=== PATIENT | male | born 1985 | race Caucasian/White ===

== ENCOUNTER 2018-01-21 15:20 | Emergency (ER) | payer OTHER ==
[2018-01-21 15:28] VITALS: BP 136/74; PULSE 82; TEMP 98.4; BMI 31.4
--- NOTE | 2018-01-21 16:12 | PDOC ---
History of Present Illness - General History Source: Patient Exam Limitations: No Limitations - History of Present Illness Initial Comments: 01/21/18 17:08 The patient is a 32 year old male, with a significant past medical history of HTN, benzodiazepine abuse and Alprazolam use who presents to the emergency department with bilateral lower extremity cellulitis. Patient reports his legs have progressively worsened within the past 5 days. Patient endorses fever/ chills, and bilateral heel pain. Patient was admitted to [facility] however was sent to the ED for further evaluation. Patient denies chest pain, headache or dizziness. Patient denies abdominal pain, nausea, vomit, diarrhea or constipation. Patient denies dysuria, frequency, urgency or hematuria. Patient denies sick contacts or recent travel. Allergies: NKA Past surgical history: None Social history: Current everyday smoker (20 cigg/day). Methadone 220 mg/day. PCP: None <Abigail Still - Last Filed: 01/21/18 17:08> <Myriam Ojeda - Last Filed: 01/21/18 18:55> - General Chief Complaint: Substance Abuse Stated Complaint: SUBSTANCE ABUSE Time Seen by Provider: 01/21/18 15:34 Past History <Abigail Still - Last Filed: 01/21/18 17:08> - Suicide/Smoking/Psychosocial Hx Smoking History: Current every day smoker Number of Cigarettes Smoked Daily: 20 Information on smoking cessation initiated: No Hx Alcohol Use: Yes Drug/Substance Use Hx: Yes <Myriam Ojeda - Last Filed: 01/21/18 18:55> - Past Medical History Allergies/Adverse Reactions: Allergies Allergy/AdvReac Type Severity Reaction Status Date / Time No Known Allergies Allergy Verified 01/21/18 15:23 Home Medications: Ambulatory Orders Cephalexin [Keflex] 250 mg PO QID #28 capsule 01/21/18 Methadone 220 mg PO DAILY 01/21/18 Omeprazole 20 mg PO DAILY 01/21/18 Sulfamethoxazole/Trimethoprim [Bactrim Ds -] 1 tab PO BID #14 tablet 01/21/18 Review of Systems - Review of Systems Able to Perform ROS?: Yes Comments:: 01/21/18 17:09 GENERAL/CONSTITUTIONAL: +fever, chills. No: weakness, loss of appetite. HEAD, EYES, EARS, NOSE AND THROAT: No: change in vision, ear pain, discharge, sore throat, throat swelling. CARDIOVASCULAR: No: chest pain, lightheadedness, palpitations, syncope RESPIRATORY: No: cough, shortness of breath, wheezing, hemoptysis, stridor. GASTROINTESTINAL: No: nausea, vomiting, abdominal cramping, diarrhea, rectal bleeding, constipation. GENITOURINARY: No: dysuria, hematuria, frequency, urgency, flank pain. MUSCULOSKELETAL: No: back pain, neck pain, joint pain, muscle swelling or pain SKIN: No: lesions, pallor, rash or easy bruising. NEUROLOGIC: No: headache, vertigo, paresthesias, weakness ENDOCRINE: No: unexplained weight gain or loss HEMATOLOGIC/LYMPHATIC: No: anemia, easy bleeding, swelling nodes <Abigail Still - Last Filed: 01/21/18 17:08> *Physical Exam - Vital Signs Last Vital Signs Temp Pulse Resp BP Pulse Ox 98.4 F 82 18 136/74 99 01/21/18 15:23 01/21/18 15:23 01/21/18 15:23 01/21/18 15:23 01/21/18 15:23 - Physical Exam Comments: 01/21/18 17:09 GENERAL:+Arousable to verbal stimuli. The patient is in no acute distress. HEAD: Normal with no signs of trauma. EYES: PERRLA, EOMI, sclera anicteric, conjunctiva clear. ENT: Ears normal, nares patent, oropharynx clear without exudates. Moist mucous membranes. NECK: Normal range of motion, supple without lymphadenopathy, JVD, or masses. LUNGS: Breath sounds equal, clear to auscultation bilaterally. No wheezes, and no crackles. HEART:Regular rate and rhythm, normal S1 and S2 without murmur, rub or gallop. ABDOMEN: Soft, nontender, normoactive bowel sounds. No guarding, no rebound. EXTREMITIES: Normal range of motion, no edema. No clubbing or cyanosis. + Bilateral lower extremity erythema. NEUROLOGICAL: Cranial nerves II through XII grossly intact. Normal speech. No focal neurological deficits. MUSCULOSKELETAL: Back nontender to palpation, no CVA tenderness SKIN: Warm, Dry, normal turgor, no rashes or lesions noted. <Abigail Still - Last Filed: 01/21/18 17:08> - Vital Signs Last Vital Signs Temp Pulse Resp BP Pulse Ox 98.4 F 82 18 136/74 99 01/21/18 15:23 01/21/18 15:23 01/21/18 15:23 01/21/18 15:23 01/21/18 15:23 <Myriam Ojeda - Last Filed: 01/21/18 18:55> ED Treatment Course - LABORATORY CBC & Chemistry Diagram: 01/21/18 17:58 01/21/18 17:58 <Myriam Ojeda - Last Filed: 01/21/18 18:55> Medical Decision Making - Medical Decision Making 01/21/18 18:47 Mr. Askew is a 32-year-old male with a history of polysubstance abuse, recent discharge from [facility] where he was admitted for detox, and kicked out due to fighting. He presents emergency department from [facility] due to lower extremity edema. Patient states he's had lower external edema for several days. No fevers, chills. He's noticed lower extremity erythema. Patient states his legs are painful. No trauma. No bruising. Physical diagnoses: Dependent Edema, DVT, cellulitis Will do: Labs, x-ray, duplex Laboratory Tests 01/21/18 01/21/18 17:58 17:58 WBC 8.6 Hgb 12.3 Hct 35.5 Plt Count 269 Sodium 137 Potassium 3.8 Chloride 102 Carbon Dioxide 26 BUN 14 Creatinine 0.9 Random Glucose 76 01/21/18 18:51 Duplex: No DVT X-ray: Lower extremity edema Will: Discharge to [facility] (no fever, no leukocytosis) Pt to be started on antibiotics Pt to elevate legs to decrease edema Clinical Impression: Cellulitis, initial presentation <Myriam Ojeda - Last Filed: 01/21/18 18:55> *DC/Admit/Observation/Transfer - Attestations Scribe Attestion: 01/21/18 17:09 Documentation prepared by Abigail Still, acting as electromedical service engineer for Myriam Ojeda MD <Abigail Still - Last Filed: 01/21/18 17:08> - Discharge Dispostion Admit: No <Myriam Ojeda - Last Filed: 01/21/18 18:55> Diagnosis at time of Disposition: Cellulitis of leg without foot, left, Cellulitis of leg without foot, right - Discharge Dispostion Disposition: HOME Condition at time of disposition: Stable - Patient Instructions Printed Discharge Instructions: DI for Cellulitis -- Adult Additional Instructions: Mr Askew Thank you for coming into the emergency Department today. Please be sure to take antibiotics as prescribed. You will be on Keflex as well as Bactrim. You absolutely must focus on elevating her legs when you're not walking, this will help decrease her swelling. Please monitor herself for fevers. If he noticed fevers or chills, you must come to the emergency department for reevaluation.
[2018-01-21 18:10] LABS: BASO % 0.7 % (0-2.0); EOS % 2.5 % (0-4.5); HEMATOCRIT 35.5 % (35.4-49); HEMOGLOBIN 12.3 GM/dL (11.7-16.9); LYMPH % 34.7 % (8-40); MCH 31.8 pg (25.7-33.7); MCHC 34.7 g/dl (32.0-35.9); MEAN CELL VOLUME 91.7 fl (80-96); MEAN PLT VOLUME 7.6 fl (7.5-11.1); MONO % 10.1 % (3.8-10.2); PLATELET COUNT 269 K/MM3 (134-434); RBC 3.87 M/mm3 (4.00-5.60); WHITE BLOOD COUNT 8.6 K/mm3 (4.0-10.0)
[2018-01-21 18:42] LABS: ALBUMIN 3.6 g/dl (3.4-5.0); ANION GAP 9 (8-16); BLOOD UREA NITROGEN 14 mg/dL (7-18); CALCIUM 8.2 mg/dL (8.5-10.1); CHLORIDE 102 mmol/L (98-107); CO2 26 mmol/L (21-32); CREATININE 0.9 mg/dL (0.7-1.3); GLUCOSE,RANDOM 76 mg/dL (74-106); POTASSIUM 3.8 mmol/L (3.5-5.1); SGOT/AST 99 U/L (15-37); SGPT/ALT 88 U/L (12-78); SODIUM 137 mmol/L (136-145)
[2018-01-21 18:44] LABS: ALK PHOS 104 U/L (45-117); BILIRUBIN,TOTAL 0.8 mg/dL (0.2-1.0); TOT PROT 7.3 g/dl (6.4-8.2)
[2018-01-21] MEDS ORDERED: IBUPROFEN 600 MG TABLET (FP) PO ONE ×2 (19:34→19:35)
--- NOTE | 2018-01-21 21:37 | HP ---
CIWA Score - CIWA Score Nausea/Vomitin Muscle Tremors: 4-Moderate,w/Arms Extend Anxiety: 4-Mod. Anxious/Guarded Agitation: 1-Slight > Activity Paroxysmal Sweats: 2 Orientation: 0-Oriented Tacttile Disturbances: 0-None Auditory Disturbances: 1-Very Mild Visual Disturbances: 1-Very Mild Sensitivity Headache: 1-Very Mild CIWA-Ar Total Score: 16 Admission ROS S - HPI Chief Complaint: I am trying to stay of the benzo, I dont feel well and I'm going through it. Allergies/Adverse Reactions: Allergies Allergy/AdvReac Type Severity Reaction Status Date / Time No Known Allergies Allergy Verified 01/21/18 15:23 History of Present Illness: Patient is 32 yo male klonopin, xanax and nicotine dependence is here seeking detox. Patient was send from [facility] after he was evaluation for bilateral cellulitis of both lower extremities. Patient currently on outpatient MMTP at [facility] [phone], on Methadone 220 mg QD, last medicated . PMHX: s/p fall 2 weeks ago with hairline fracture on left shoulder blade, asthma, IBS, Eczema, HTN, Hiatial hernia, anxiety, depression, PTSD, bipolar, schizophrenia. Denies suicidal / homicidal ideation or suicide attempts. Denies any legal problems. Longest period of sobriety on year. Reports hx of 12 rehab and detox treatment in his past. Reports attempted detox at [facility] about three days ago and signed out AMA. Reports recent overdose three days. Denies hx of seizure, reports recent overdose in the past three days after 16mg of klonopin. Exam Limitations: No Limitations - Ebola screening Have you traveled outside of the country in the last 21 days: No Have you had contact with anyone from an Ebola affected area: No Have you been sick,other than usual withdrawal symptoms: No Do you have a fever: No - Review of Systems Constitutional: Chills, Loss of Appetite, Changes in sleep, Unintentional Wgt. Loss (20 lbs over the past month) EENT: reports: Blurred Vision (wears glassess), Dental Problems (missing teeth) Respiratory: reports: No Symptoms reported Cardiac: reports: No Symptoms Reported GI: reports: Diarrhea, Poor Appetite, Poor Fluid Intake, Abdominal cramping : reports: No Symptoms Reported Musculoskeletal: reports: Back Pain, Joint Pain Integumentary: reports: Erythema (both lower extremites) Neuro: reports: Headache, Tremors Endocrine: reports: Excessive Sweating, Increased Thirst Hematology: reports: No Symptoms Reported Psychiatric: reports: Orientated x3, Anxious, Depressed Other Systems: Reviewed and Negative Patient History - Patient Medical History Hx Anemia: No Hx Asthma: Yes Hx Chronic Obstructive Pulmonary Disease (COPD): No Hx Cancer: No Hx Cardiac Disorders: No Hx Congestive Heart Failure: No Hx Hypertension: Yes Hx Hypercholesterolemia: No Hx Pacemaker: No HX Cerebrovascular Accident: No Hx Seizures: No Hx Dementia: No Hx Diabetes: No Hx Gastrointestinal Disorders: Yes (IBS , GERD, Hiatial Hernia ) Hx Liver Disease: Yes (Hep C not treatment ) Hx Genitourinary Disorders: No Hx Sexually Transmitted Disorders: Yes (Chlamydia ) Hx Renal Disease (ESRD): Yes (kidney stones ) Hx Thyroid Disease: No Hx Human Immunodeficiency Virus (HIV): Yes (tested in July 2017) Hx Hepatitis C: No Hx Depression: Yes Hx Suicide Attempt: No Hx Bipolar Disorder: Yes Hx Schizophrenia: Yes - Patient Surgical History Past Surgical History: Yes Hx Neurologic Surgery: No Hx Cataract Extraction: No Hx Cardiac Surgery: No Hx Lung Surgery: No Hx Breast Surgery: No Hx Breast Biopsy: No Hx Abdominal Surgery: No Hx Appendectomy: No Hx Cholecystectomy: No Hx Genitourinary Surgery: No Hx Orthopedic Surgery: No Other Surgical History: deviated septum repair, 2001 Anesthesia Reaction: No - PPD History Previous Implant?: No Documented Results: Negative w/o proof PPD to be Administered?: Yes - Reproductive History Patient is a Female of Child Bearing Age (11 -55 yrs old): No - Smoking Cessation Smoking history: Current every day smoker Aproximately how many cigarettes per day: 20 Cigars Per Day: 0 Hx Chewing Tobacco Use: No Initiated information on smoking cessation: No 'Breaking Loose' booklet given: 01/21/18 - Substance & Tx. History Hx Alcohol Use: No Hx Substance Use: Yes - Substances Abused Alprazolam (Xanax) Route: Oral Frequency: Daily Amount used: unknown Date of Last Use: 01/19/18 Benzodiazepine (Klonopin) Route: Oral Frequency: Daily Amount used: unknown Date of Last Use: 01/19/18 Alcohol Route: Oral Frequency: 3-6 times per week Amount used: 2 pints vodka Age of first use: 15 Date of Last Use: 01/16/18 Family Disease History - Family Disease History Family Disease History: CA: Father (alive, proatate cancer ), Mother (, breast cancer ), Other: Father, Mother Admission Physical Exam S - Vital Signs Vital Signs: Vital Signs - 24 hr 01/21/18 15:23 Temperature 98.4 F Pulse Rate 82 Respiratory 18 Rate Blood Pressure 136/74 O2 Sat by Pulse 99 Oximetry (%) - Physical General Appearance: Yes: Disheveled, Mild Distress, Thin, Tremorous, Irritable, Sweating, Anxious HEENTM: Yes: EOMI, Hearing grossly Normal, Normal ENT Inspection, Normocephalic , Normal Voice, STUART, Pharynx Normal, Tm's normal, Other (poor dentation, dry mucous membranes) Respiratory: Yes: Chest Non-Tender, No Respiratory Distress, No Accessory Muscle Use, Wheezing Neck: Yes: No masses,lesions,Nodules, Trachea in good position Breast: Yes: Breast Exam Deferred Cardiology: Yes: Regular Rhythm, Regular Rate Abdominal: Yes: Normal Bowel Sounds, Non Tender, Soft, Protuberent Genitourinary: Yes: Within Normal Limits Back: Yes: Normal Inspection Musculoskeletal: Yes: full range of Motion, Gait Steady, Pelvis Stable, Back pain, Other (left arm in sling) Extremities: Yes: Normal Capillary Refill, Normal Inspection, Normal Range of Motion, Non-Tender Neurological: Yes: shoes hand sewer II-XII NML intact, Fully Oriented, Alert, Motor Strength 5/5, Depressed Affect, Other (vey anxious with rapid speech) Integumentary: Yes: Normal Color, Erythema, Diaphoresis, Pitting Edema ( bilateral lower extremities) Lymphatic: Yes: Within Normal Limits - Diagnostic (1) Methadone maintenance therapy patient Status: Chronic Comment: Currently 220mg methadone pending verification (2) Hypertension Status: Acute Qualifiers: Hypertension type: essential hypertension Qualified Code(s): I10 - Essential (primary) hypertension (3) Hepatitis C Status: Chronic Qualifiers: Viral hepatitis chronicity: unspecified (4) Nicotine dependence Status: Chronic Qualifiers: Nicotine product type: cigarettes (5) Sedative, hypnotic or anxiolytic dependence with withdrawal, unspecified Status: Acute (6) Alcohol dependence with withdrawal Status: Acute (7) Eczema Status: Chronic Qualifiers: Eczema type: unspecified Qualified Code(s): L30.9 - Dermatitis, unspecified (8) Asthma Status: Chronic Qualifiers: Asthma severity: moderate Asthma persistence: unspecified Asthma complication type: uncomplicated Qualified Code(s): J45.909 - Unspecified asthma, uncomplicated (9) Wheezing Status: Acute (10) IBS (irritable bowel syndrome) Status: Chronic Qualifiers: Irritable bowel syndrome type: unspecified Qualified Code(s): K58.9 - Irritable bowel syndrome without diarrhea (11) Hernia, hiatal Status: Chronic (12) History of fall within past 90 days Status: Acute (13) Cellulitis of leg without foot, left Status: Acute (14) Cellulitis of leg without foot, right Status: Acute (15) Psychiatric disorder Status: Suspected Cleared for Admission [facility] - Detox or Rehab S Level of Care: Medically Managed Detox Regimen/Protocol: Valium [facility] Breath Alcohol Content Breath Alcohol Content: 0
[2018-01-21] MEDS ORDERED: IBUPROFEN 400 MG TABLET (FP) PO PRN (21:57)
[2018-01-21] MEDS ORDERED: guaiFENesin/D-METHORPHAN HB 10 ML UNIT-DOSE CUPS PO PRN (21:57)
[2018-01-21] MEDS ORDERED: P-EPHED 60MG/TRIPROLIDI 2.5MG TABLET PO PRN (21:57)
[2018-01-21] MEDS ORDERED: MAGNESIUM CITRATE 300 ML BOTTLE PO PRN (21:57)
[2018-01-21] MEDS ORDERED: hydrOXYzine PAMOATE 50 MG CAPSULE (FP) PO PRN (21:57)
[2018-01-21] MEDS ORDERED: MAGNESIUM HYDROX 2400MG/30ML ORAL SUSPENSION 30 ML CUP PO PRN (21:57)
[2018-01-21] MEDS ORDERED: MENTHOL/PHENOL 1 EACH UD MM PRN (21:57)
[2018-01-21] MEDS ORDERED: ACETAMINOPHEN 325 MG TABLET (FP) PO PRN (21:57)
[2018-01-21] MEDS ORDERED: LOPERAMIDE HCL 2 MG CAPSULE PO PRN (21:57)
[2018-01-21] MEDS ORDERED: MAG HYDROX/AL HYDROX/SIMETH 30 ML UNIT-DOSE CUP PO PRN (21:57)
[2018-01-21] MEDS ORDERED: NICOTINE POLACRILEX 2 MG GUM BC PRN (21:57)
[2018-01-21] MEDS ORDERED: diazePAM 5 MG TABLET PO PRN (21:57)
[2018-01-21] MEDS ORDERED: diazePAM 5 MG TABLET PO ONE (21:57)
[2018-01-21] MEDS ORDERED: diazePAM 5 MG TABLET PO SCH (22:00)
[2018-01-21] MEDS ORDERED: THIAMINE HCL 100 MG TABLET (FP) PO SCH (22:00)
[2018-01-21] MEDS ORDERED: cloNIDine HCL 0.1 MG TABLET PO SCH (22:30)
[2018-01-21] MEDS ORDERED: TUBERCULIN PPD 5 TU/0.1ML SYRINGE (IN PATIENT USE ONLY) ID ONE (22:45)
[2018-01-22] MEDS ORDERED: VITAMINS A AND D TOPICAL OINTMENT 60 GM TUBE TP SCH
[2018-01-22] MEDS ORDERED: ALBUTEROL SO4 2.5/IPRATROPIUM 0.5 INH SOL 3 ML VIAL.NEB. NEB SCH (08:00)
[2018-01-22] MEDS ORDERED: PANTOPRAZOLE 20 MG TABLET (FP) PO SCH (10:00)
[2018-01-22] MEDS ORDERED: NICOTINE 21 MG/24 HOURS TOPICAL PATCH TD SCH (10:00)
[2018-01-22] MEDS ORDERED: PRENATAL VITAMINS W/ FOLIC ACID TABLET (FP) PO SCH (10:00)
[2018-01-22] MEDS ORDERED: IBUPROFEN 400 MG TABLET (FP) PO PRN (10:00)
[2018-01-23] MEDS ORDERED: diazePAM 5 MG TABLET PO SCH (10:00)
[2018-01-25] MEDS ORDERED: diazePAM 5 MG TABLET PO SCH (10:00)
== END 2018-01-21 20:00 | disposition home or self-care (01) ==
LOC: JER 15:20
DX: L03.116 Cellulitis of left lower limb (principal); L03.115 Cellulitis of right lower limb; F13.10 Sedative, hypnotic or anxiolytic abuse, uncomplicated; F17.210 Nicotine dependence, cigarettes, uncomplicated; I10 Essential (primary) hypertension
CPT/HCPCS: 36415; 71045-TC-FY; 73590-TC-LT-FY; 73590-TC-RT-FY; 80053; 85025; 87040; 93970-TC; 99283-25

== ENCOUNTER 2018-05-19 11:13 | Inpatient (IN) | payer OTHER ==
[2018-05-19 12:05] VITALS: BMI 26.4
--- NOTE | 2018-05-19 12:34 | HP ---
CIWA Score - CIWA Score Nausea/Vomitin-Mild Nausea/No Vomiting Muscle Tremors: 4-Moderate,w/Arms Extend Anxiety: 4-Mod. Anxious/Guarded Agitation: 4-Moderately Restless Paroxysmal Sweats: 1-Minimal Palms Moist Orientation: 0-Oriented Tacttile Disturbances: 0-None Auditory Disturbances: 0-None Visual Disturbances: 0-None Headache: 1-Very Mild CIWA-Ar Total Score: 15 Admission ROS S - HPI Chief Complaint: benzo withdrawal sx Allergies/Adverse Reactions: Allergies Allergy/AdvReac Type Severity Reaction Status Date / Time No Known Allergies Allergy Verified 05/19/18 12:11 History of Present Illness: 33 years old male with long history of prescription benzo for anxiety step into benzo dependence, patient came to [facility] for benzo detox with [facility] written by Mylene Allison NP [phone] that the patient wants to stop benzo consumption Exam Limitations: No Limitations - Ebola screening Have you traveled outside of the country in the last 21 days: No Have you had contact with anyone from an Ebola affected area: No Have you been sick,other than usual withdrawal symptoms: No Do you have a fever: No - Review of Systems Constitutional: Changes in sleep, Weight Stable EENT: reports: No Symptoms Reported Respiratory: reports: No Symptoms reported Cardiac: reports: No Symptoms Reported GI: reports: Nausea, Poor Fluid Intake, Abdominal cramping : reports: No Symptoms Reported Musculoskeletal: reports: No Symptoms Reported Integumentary: reports: Erythema (face dry shave this morning) Neuro: reports: Tremors Endocrine: reports: No Symptoms Reported Hematology: reports: No Symptoms Reported Psychiatric: reports: Judgement Intact, Orientated x3, Anxious, Depressed Other Systems: Reviewed and Negative Patient History - Patient Medical History Hx Anemia: No Hx Asthma: Yes (as child) Hx Chronic Obstructive Pulmonary Disease (COPD): No Hx Cancer: No Hx Cardiac Disorders: No Hx Congestive Heart Failure: No Hx Hypertension: No Hx Hypercholesterolemia: No Hx Pacemaker: No HX Cerebrovascular Accident: No Hx Seizures: No Hx Dementia: No Hx Diabetes: No Hx Gastrointestinal Disorders: Yes (IBS , GERD, Hiatial Hernia ) Hx Liver Disease: Yes (Hep C not treatment ) Hx Genitourinary Disorders: No Hx Sexually Transmitted Disorders: Yes (Chlamydia ) Hx Renal Disease (ESRD): Yes (kidney stones 2008) Hx Thyroid Disease: No Hx Human Immunodeficiency Virus (HIV): No (tested in July 2017) Hx Hepatitis C: No Hx Depression: Yes Hx Suicide Attempt: No Hx Bipolar Disorder: No Hx Schizophrenia: No - Patient Surgical History Past Surgical History: Yes Hx Neurologic Surgery: No Hx Cataract Extraction: No Hx Cardiac Surgery: No Hx Lung Surgery: No Hx Breast Surgery: No Hx Breast Biopsy: No Hx Abdominal Surgery: No Hx Appendectomy: No Hx Cholecystectomy: No Hx Genitourinary Surgery: No Hx Orthopedic Surgery: No Other Surgical History: deviated septum repair, 2001 Anesthesia Reaction: No - PPD History Previous Implant?: Yes Documented Results: Negative w/proof Implanted On Prior [facility] Admission?: Yes Date: 01/23/18 PPD to be Administered?: No - Smoking Cessation Smoking history: Current every day smoker Have you smoked in the past 12 months: Yes Aproximately how many cigarettes per day: 20 Cigars Per Day: 0 Hx Chewing Tobacco Use: No Initiated information on smoking cessation: Yes 'Breaking Loose' booklet given: 05/19/18 - Substance & Tx. History Hx Alcohol Use: No Hx Substance Use: Yes Substance Use Type: Marijuana, Tranquilizers Hx Substance Use Treatment: Yes (01/2018 [facility] Family Disease History - Family Disease History Family Disease History: CA: Father (alive, proatate cancer ), Mother (, breast cancer ), Other: Father, Mother Admission Physical Exam S - Vital Signs Vital Signs: Vital Signs - 24 hr 05/19/18 12:01 Temperature 97.5 F L Pulse Rate 70 Respiratory 20 Rate Blood Pressure 137/84 - Physical General Appearance: Yes: Appropriately Dressed, Mild Distress, Tremorous, Irritable, Sweating, Anxious HEENTM: Yes: Hearing grossly Normal, Normocephalic, Normal Voice Respiratory: Yes: Chest Non-Tender, Lungs Clear, Normal Breath Sounds, No Respiratory Distress, No Accessory Muscle Use Neck: Yes: Supple, Trachea in good position Breast: Yes: Breasts Symetrical, No Discharge Cardiology: Yes: Regular Rhythm, Regular Rate, S1, S2 Abdominal: Yes: Normal Bowel Sounds, Flat, Soft, Other (ibs frequent diarrhea) Genitourinary: Yes: Within Normal Limits Back: Yes: Normal Inspection Musculoskeletal: Yes: full range of Motion, Gait Steady Extremities: Yes: Normal Inspection, Normal Range of Motion, Non-Tender, Tremors Neurological: Yes: Fully Oriented, Alert, Motor Strength 5/5, Normal Response, Depressed Affect Integumentary: Yes: Warm Lymphatic: Yes: Within Normal Limits - Diagnostic (1) Anxiety with depression Current Visit: Yes Status: Suspected (2) Sedative, hypnotic or anxiolytic dependence with withdrawal, unspecified Current Visit: Yes Status: Acute Comment: . (3) Hepatitis C Current Visit: Yes Status: Chronic Qualifiers: Viral hepatitis chronicity: chronic Hepatic coma status: without hepatic coma Qualified Code(s): B18.2 - Chronic viral hepatitis C (4) IBS (irritable bowel syndrome) Current Visit: Yes Status: Chronic Qualifiers: Irritable bowel syndrome type: with diarrhea Qualified Code(s): K58.0 - Irritable bowel syndrome with diarrhea (5) Methadone maintenance therapy patient Current Visit: Yes Status: Chronic Comment: Currently 250mg methadone pending verification (6) Nicotine dependence Current Visit: Yes Status: Acute Qualifiers: Nicotine product type: cigarettes Substance use status: in withdrawal Qualified Code(s): F17.213 - Nicotine dependence, cigarettes, with withdrawal Comment: . (7) UTI (urinary tract infection) Current Visit: Yes Status: Acute Qualifiers: Urinary tract infection type: site unspecified Hematuria presence: without hematuria Qualified Code(s): N39.0 - Urinary tract infection, site not specified Cleared for Admission [facility] - Detox or Rehab [facility] Level of Care: Medically Managed Detox Regimen/Protocol: Valium [facility] Breath Alcohol Content Breath Alcohol Content: 0 Urine Drug Screen - Results Drug Screen Negative: No Urine Drug Screen Results: THC-Marijuana, BZO-Benzodiazepines, MTD-Methadone, TCA-Tricyclic Antidepress
[2018-05-19] MEDS ORDERED: ACETAMINOPHEN 325 MG TABLET (FP) PO PRN (12:40)
[2018-05-19] MEDS ORDERED: MAGNESIUM HYDROX 2400MG/30ML ORAL SUSPENSION 30 ML CUP PO PRN (12:40)
[2018-05-19] MEDS ORDERED: MENTHOL/PHENOL 1 EACH UD MM PRN (12:40)
[2018-05-19] MEDS ORDERED: guaiFENesin/D-METHORPHAN HB 10 ML UNIT-DOSE CUPS PO PRN (12:40)
[2018-05-19] MEDS ORDERED: P-EPHED 60MG/TRIPROLIDI 2.5MG TABLET PO PRN (12:40)
[2018-05-19] MEDS ORDERED: MAGNESIUM CITRATE 300 ML BOTTLE PO PRN (12:40)
[2018-05-19] MEDS ORDERED: NICOTINE POLACRILEX 4 MG GUM BUC PRN (12:40)
[2018-05-19] MEDS ORDERED: diazePAM 5 MG TABLET PO ONE (14:30)
[2018-05-19] MEDS: NICOTINE 21 MG/24 HOURS TOPICAL PATCH TD SCH (15:28)
[2018-05-19] MEDS: RANITIDINE HCL 150 MG TABLET (FP) PO SCH ×2 (15:29→22:12)
[2018-05-19] MEDS ORDERED: METHADONE HCL 5 MG TABLET ONE (17:03)
[2018-05-19] MEDS ORDERED: METHADONE HCL 40 MG DISPERSABLE TABLET ONE (17:03)
[2018-05-19 17:19] LABS: URINE APPEARANCE CLEAR; URINE BILIRUBIN NEGATIVE (<2.0 mg/dL); URINE COLOR AMBER; URINE GLUCOSE (UA) NEGATIVE (NEGATIVE); URINE KETONE NEGATIVE (NEGATIVE); URINE LEUK ESTERASE TRACE (NEGATIVE); URINE NITRITE POSITIVE (NEGATIVE); URINE PROTEIN NEGATIVE (NEGATIVE); URINE UROBILINOGEN 4.0 E.U/dl mg/dL (0.2-1.0)
[2018-05-19] MEDS: LOPERAMIDE HCL 2 MG CAPSULE PO PRN ×2 (17:30→23:33)
[2018-05-19] MEDS ORDERED: METHADONE HCL 10 MG TABLET PO ONE (18:00)
[2018-05-19] MEDS ORDERED: METHADONE 120 MG, METHADONE 5 MG PO ONE (18:00)
[2018-05-19 18:42] LABS: URINE MUCUS RARE
[2018-05-19] MEDS: diazePAM 5 MG TABLET PO PRN ×2 (19:06→23:33)
[2018-05-19] MEDS: MINERAL OIL/PETROLAT/WATER TOPICAL CREAM 113 GM JAR TP SCH (22:12)
[2018-05-19] MEDS: THIAMINE HCL 100 MG TABLET (FP) PO SCH (22:12)
[2018-05-19] MEDS: diazePAM 5 MG TABLET PO SCH (22:12)
[2018-05-19] MEDS: MELATONIN 5 MG TABLETS PO PRN (22:13)
[2018-05-20] MEDS: diazePAM 5 MG TABLET PO PRN ×3 (03:48→18:48)
[2018-05-20] MEDS ORDERED: METHADONE HCL 5 MG TABLET ONE ×2 (04:25→17:00)
[2018-05-20] MEDS ORDERED: METHADONE HCL 40 MG DISPERSABLE TABLET ONE ×2 (04:26→17:01)
[2018-05-20] MEDS: diazePAM 5 MG TABLET PO SCH ×3 (05:42→22:15)
[2018-05-20] MEDS: METHADONE 120 MG, METHADONE 5 MG PO SCH ×2 (05:42→17:46)
[2018-05-20] MEDS ORDERED: METHADONE HCL 10 MG TABLET PO SCH (06:00)
[2018-05-20] MEDS: IBUPROFEN 400 MG TABLET (FP) PO PRN ×2 (07:56→14:16)
[2018-05-20 09:29] LABS: HEMATOCRIT 39.2 % (35.4-49); HEMOGLOBIN 13.5 GM/dL (11.7-16.9); MCH 30.8 pg (25.7-33.7); MCHC 34.4 g/dl (32.0-35.9); MEAN CELL VOLUME 89.5 fl (80-96); MEAN PLT VOLUME 9.3 fl (7.5-11.1); PLATELET COUNT 187 K/MM3 (134-434); RBC 4.38 M/mm3 (4.00-5.60); RDW 13.7 % (11.9-15.9); WHITE BLOOD COUNT 8.7 K/mm3 (4.0-10.0)
[2018-05-20 10:08] LABS: ALBUMIN 4.3 g/dl (3.4-5.0); ANION GAP 7 (8-16); BLOOD UREA NITROGEN 8 mg/dL (7-18); CALCIUM 8.8 mg/dL (8.5-10.1); CHLORIDE 103 mmol/L (98-107); CO2 26 mmol/L (21-32); CREATININE 1.1 mg/dL (0.7-1.3); GLUCOSE,RANDOM 82 mg/dL (74-106); POTASSIUM 4.3 mmol/L (3.5-5.1); SGOT/AST 46 U/L (15-37); SGPT/ALT 64 U/L (12-78); SODIUM 136 mmol/L (136-145)
[2018-05-20 10:09] LABS: ALK PHOS 85 U/L (45-117); BILIRUBIN,TOTAL 0.4 mg/dL (0.2-1.0); TOT PROT 7.9 g/dl (6.4-8.2)
[2018-05-20] MEDS: NICOTINE 21 MG/24 HOURS TOPICAL PATCH TD SCH (10:15)
[2018-05-20] MEDS: PRENATAL VITAMINS W/ FOLIC ACID TABLET (FP) PO SCH (10:15)
[2018-05-20] MEDS: PATIENT'S OWN MEDICATION (NON-FORMULARY) (Sulfamethoxazole/Trimethoprim [Sulfamethoxazole- PO SCH (10:15)
--- NOTE | 2018-05-20 10:15 | EKG ---
Test Reason : Blood Pressure : / mmHG Vent. Rate : 058 BPM Atrial Rate : 058 BPM P-R Int : 150 ms QRS Dur : 096 ms QT Int : 466 ms P-R-T Axes : 041 -04 024 degrees QTc Int : 457 ms SINUS BRADYCARDIA INCOMPLETE RIGHT BUNDLE BRANCH BLOCK BORDERLINE ECG WHEN COMPARED WITH ECG OF 21-JAN-2018 22:56, NONSPECIFIC T WAVE ABNORMALITY NO LONGER EVIDENT IN ANTERIOR LEADS Confirmed by CHIKIS HERNANDEZ, OSKAR ([id number]) on 05/20/2018 10:15:38 AM Referred By: Confirmed By:OSKAR DIOP MD
[2018-05-20] MEDS: RANITIDINE HCL 150 MG TABLET (FP) PO SCH ×2 (10:16→22:15)
[2018-05-20] MEDS: LOPERAMIDE HCL 2 MG CAPSULE PO PRN (10:17)
[2018-05-20] MEDS: VITAMINS A AND D TOPICAL OINTMENT 60 GM TUBE TP SCH ×2 (11:27→22:14)
[2018-05-20] MEDS: TOLNAFTATE 1% CREAM 15 GM TUBE TP SCH ×2 (11:27→22:15)
--- NOTE | 2018-05-20 11:29 | PN ---
[facility] CIWA - CIWA Score Nausea/Vomitin-No Nausea/No Vomiting Muscle Tremors: 3 Anxiety: 5 Agitation: 4-Moderately Restless Paroxysmal Sweats: No Perspiration Orientation: 0-Oriented Tacttile Disturbances: 3-Moderate Itch/Numb/Burn Auditory Disturbances: 2-Mild Harshness/Frighten Visual Disturbances: 0-None Headache: 0-None Present CIWA-Ar Total Score: 17 BHS Progress Note (SOAP) Subjective: Stomach Cramping, Interrupted Sleep, Tremors, Diarrhea, Anxious. Objective: PATIENT A & O X 3, OBSERVED AMBULATING ON UNIT. NO ACUTE DISTRESS. 05/20/18 11:25 Vital Signs Temperature 97 F L 05/20/18 09:00 Pulse Rate 60 05/20/18 09:00 Respiratory Rate 20 05/20/18 09:00 Blood Pressure 119/93 05/20/18 09:00 O2 Sat by Pulse Oximetry (%) Laboratory Tests 05/19/18 05/20/18 05/20/18 16:45 06:00 06:00 WBC 8.7 RBC 4.38 Hgb 13.5 Hct 39.2 MCV 89.5 MCH 30.8 MCHC 34.4 RDW 13.7 Plt Count 187 D MPV 9.3 D Sodium 136 Potassium 4.3 Chloride 103 Carbon Dioxide 26 Anion Gap 7 L BUN 8 Creatinine 1.1 Creat Clearance w eGFR > 60 Random Glucose 82 D Calcium 8.8 Total Bilirubin 0.4 AST 46 H D ALT 64 D Alkaline Phosphatase 85 Total Protein 7.9 Albumin 4.3 Urine Color Meli Urine Appearance Clear Urine pH 6.0 Ur Specific [place] 1.010 Urine Protein Negative Urine Glucose (UA) Negative Urine Ketones Negative Urine Blood Negative Urine Nitrite Positive Urine Bilirubin Negative Urine Urobilinogen 4.0 e.u/dl Ur Leukocyte Esterase Trace Urine WBC (Auto) 2 Urine RBC (Auto) None Urine Mucus Rare LABS NOTED. RPR RESULT PENDING. UA RESULTS NOTED - PATIENT CURRENTLY BEING TREATED FOR UTI, PRESCRIBED BACTRIM BY OUTPATIENT MEDICAL PROVIDER, CURRENTLY TAKING BACTRIM WHILE ADMITTED FOR DETOX. 05/20/18 11:28 Assessment: 05/20/18 11:26 WITHDRAWAL SYMPTOMS. Plan: CONTINUE DETOX. INCREASE DAILY PO FLUID INTAKE. PRN IMMODIUM FOR DIARRHEA.
--- NOTE | 2018-05-20 13:41 | CONSULT ---
[facility] Psychiatric Consult - Data Date of interview: 05/20/18 Admission source: [facility] Identifying data: Readmission to [facility] for this 33 y/o male seeking detox treatment on for opioid,marihuana and benzodiazepine dependence.Patient is single without children,domiciled,unemployed and supported on Public Assistance. Substance Abuse History: Confirmed by patient.Smoking history: Current every day smoker. Have you smoked in the past 12 months: Yes. Aproximately how many cigarettes per day: 20. Cigars Per Day: 0. Hx Chewing Tobacco Use: No. Initiated information on smoking cessation: Yes. 'Breaking Loose' booklet given : 05/19/18. - Substance & Tx. History. Hx Alcohol Use: No. Hx Substance Use: Yes. Substance Use Type: Marijuana, Tranquilizers. Hx Substance Use Treatment : Yes (01/2018 [facility]) Medical History: Multiple medical co-morbidities : irritable bowel syndrome,GERD ,hiatal hernia,hepatitis C,history of kidney stones,bronchial asthma in childhood,antecedent of chlamydia and surgery for deviated septum. Psychiatric History: Patient endorses a history of one psychiatric hospitalization at a facility in [facility] five years ago." I overdosed on heroin and they thought that it was a suicide attempt.So, they kept me on the psychiatric leavitt for three days and sent me home afterwards." Mr Askew states that he was diagnosed with Anxiety Disorder and PTSD.Prescribed several psychiatric drugs over the past few months (risperdal,seroquel,klonopin, sertraline).Currrently followed at the [facility] outpatient program in the [place]." I throw away everything except my klonopin.I don't take anything else.I don't deal with psychiatric medications." Patient is on methadone maintenance ( 250 mg/day dispensed in two divided doses).Denies history of suicide attempts. Physical/Sexual Abuse/Trauma History: Patient reports that losing his mother ( breast cancer), at a young age, has caused him significant and enduring distress. Additional Comment: Urine Drug Screen Results: THC-Marijuana, BZO- Benzodiazepines, MTD-Methadone, TCA-Tricyclic Antidepressant.Noted. Mental Status Exam - Mental Status Exam Alert and Oriented to: Time, Place, Person Cognitive Function: Good Patient Appearance: Well Groomed (tattoos on both forearms) Mood: Anxious, Apprehensive Affect: Mood Congruent Patient Behavior: Cooperative Speech Pattern: Clear, Appropriate Voice Loudness: Normal Thought Process: Goal Oriented Thought Disorder: Not Present Hallucinations: Denies Suicidal Ideation: Denies Homicidal Ideation: Denies Insight/Judgement: Poor Sleep: Well Appetite: Good Muscle strength/Tone: Normal Gait/Station: Normal Psychiatric Findings - Problem List ([place] 1, 2,3) (1) Sedative, hypnotic or anxiolytic dependence with withdrawal, unspecified Current Visit: Yes Status: Acute Comment: . (2) Opioid dependence on agonist therapy Current Visit: Yes Status: Acute Comment: .On 220 mg of methadone daily. (3) Marihuana dependence Current Visit: Yes Status: Acute (4) Nicotine dependence Current Visit: Yes Status: Acute Qualifiers: Nicotine product type: cigarettes Substance use status: in withdrawal Qualified Code(s): F17.213 - Nicotine dependence, cigarettes, with withdrawal Comment: . (5) Substance induced mood disorder Current Visit: Yes Status: Acute Comment: . - Initial Treatment Plan Initial Treatment Plan: Psychoeducation.Sleep hygiene.Detoxification.Observation.
[2018-05-20] MEDS: MINERAL OIL/PETROLAT/WATER TOPICAL CREAM 113 GM JAR TP SCH (22:15)
[2018-05-20] MEDS: THIAMINE HCL 100 MG TABLET (FP) PO SCH (22:19)
[2018-05-21] MEDS: diazePAM 5 MG TABLET PO PRN ×3 (00:43→13:06)
[2018-05-21] MEDS: MELATONIN 5 MG TABLETS PO PRN (00:44)
[2018-05-21] MEDS ORDERED: METHADONE HCL 5 MG TABLET ONE ×2 (05:01→16:54)
[2018-05-21] MEDS ORDERED: METHADONE HCL 40 MG DISPERSABLE TABLET ONE ×2 (05:01→16:55)
[2018-05-21] MEDS: METHADONE 120 MG, METHADONE 5 MG PO SCH ×2 (05:39→17:12)
[2018-05-21] MEDS: IBUPROFEN 400 MG TABLET (FP) PO PRN ×2 (07:29→23:09)
[2018-05-21] MEDS: MAG HYDROX/AL HYDROX/SIMETH 30 ML UNIT-DOSE CUP PO PRN (09:30)
[2018-05-21] MEDS ORDERED: diazePAM 5 MG TABLET PO SCH (10:00)
[2018-05-21] MEDS: PRENATAL VITAMINS W/ FOLIC ACID TABLET (FP) PO SCH (10:29)
[2018-05-21] MEDS: VITAMINS A AND D TOPICAL OINTMENT 60 GM TUBE TP SCH ×2 (10:29→23:13)
[2018-05-21] MEDS: PATIENT'S OWN MEDICATION (NON-FORMULARY) (Sulfamethoxazole/Trimethoprim [Sulfamethoxazole- PO SCH (10:29)
[2018-05-21] MEDS: RANITIDINE HCL 150 MG TABLET (FP) PO SCH ×2 (10:29→23:07)
[2018-05-21] MEDS: NICOTINE 21 MG/24 HOURS TOPICAL PATCH TD SCH (10:30)
[2018-05-21] MEDS: TOLNAFTATE 1% CREAM 15 GM TUBE TP SCH ×2 (11:12→23:13)
--- NOTE | 2018-05-21 13:16 | PN ---
S CIWA - CIWA Score Nausea/Vomitin-No Nausea/No Vomiting Muscle Tremors: 3 Anxiety: 4-Mod. Anxious/Guarded Agitation: 4-Moderately Restless Paroxysmal Sweats: No Perspiration Orientation: 0-Oriented Tacttile Disturbances: 2-Mild Itch/Numbness/Burn Auditory Disturbances: 0-None Visual Disturbances: 0-None Headache: 3-Moderate CIWA-Ar Total Score: 16 BHS Progress Note (SOAP) Subjective: Anxious, H/A, Diarrhea (improving), Tremors. Objective: PATIENT A & O X 3, OBSERVED AMBULATING ON UNIT. NO ACUTE DISTRESS. 05/21/18 13:15 Vital Signs Temperature 97.6 F 05/21/18 09:41 Pulse Rate 51 L 05/21/18 09:41 Respiratory Rate 18 05/21/18 09:41 Blood Pressure 115/77 05/21/18 09:41 O2 Sat by Pulse Oximetry (%) Laboratory Tests 05/19/18 05/20/18 05/20/18 16:45 06:00 06:00 WBC 8.7 RBC 4.38 Hgb 13.5 Hct 39.2 MCV 89.5 MCH 30.8 MCHC 34.4 RDW 13.7 Plt Count 187 D MPV 9.3 D Sodium 136 Potassium 4.3 Chloride 103 Carbon Dioxide 26 Anion Gap 7 L BUN 8 Creatinine 1.1 Creat Clearance w eGFR > 60 Random Glucose 82 D Calcium 8.8 Total Bilirubin 0.4 AST 46 H D ALT 64 D Alkaline Phosphatase 85 Total Protein 7.9 Albumin 4.3 Urine Color Meli Urine Appearance Clear Urine pH 6.0 Ur Specific [place] 1.010 Urine Protein Negative Urine Glucose (UA) Negative Urine Ketones Negative Urine Blood Negative Urine Nitrite Positive Urine Bilirubin Negative Urine Urobilinogen 4.0 e.u/dl Ur Leukocyte Esterase Trace Urine WBC (Auto) 2 Urine RBC (Auto) None Urine Mucus Rare RPR Titer 05/20/18 06:00 WBC RBC Hgb Hct MCV MCH MCHC RDW Plt Count MPV Sodium Potassium Chloride Carbon Dioxide Anion Gap BUN Creatinine Creat Clearance w eGFR Random Glucose Calcium Total Bilirubin AST ALT Alkaline Phosphatase Total Protein Albumin Urine Color Urine Appearance Urine pH Ur Specific [place] Urine Protein Urine Glucose (UA) Urine Ketones Urine Blood Urine Nitrite Urine Bilirubin Urine Urobilinogen Ur Leukocyte Esterase Urine WBC (Auto) Urine RBC (Auto) Urine Mucus RPR Titer Nonreactive LABS NOTED. Assessment: 05/21/18 13:15 WITHDRAWAL SYMPTOMS. Plan: CONTINUE DETOX. INCREASE DAILY PO FLUID INTAKE.
--- NOTE | 2018-05-21 17:32 | PN ---
S Progress Note Note: Vital Signs Temperature 98.2 F 05/21/18 13:18 Pulse Rate 59 L 05/21/18 13:18 Respiratory Rate 20 05/21/18 13:18 Blood Pressure 130/91 05/21/18 13:18 O2 Sat by Pulse Oximetry (%) c/o of feeling anxious vistaril PRN continue to monitor
[2018-05-21] MEDS: hydrOXYzine PAMOATE 50 MG CAPSULE (FP) PO PRN ×2 (17:54→23:09)
[2018-05-21] MEDS: THIAMINE HCL 100 MG TABLET (FP) PO SCH (23:07)
[2018-05-21] MEDS: MINERAL OIL/PETROLAT/WATER TOPICAL CREAM 113 GM JAR TP SCH (23:12)
[2018-05-22] MEDS: MAG HYDROX/AL HYDROX/SIMETH 30 ML UNIT-DOSE CUP PO PRN (02:12)
[2018-05-22] MEDS: hydrOXYzine PAMOATE 50 MG CAPSULE (FP) PO PRN ×2 (02:12→09:40)
[2018-05-22] MEDS: LOPERAMIDE HCL 2 MG CAPSULE PO PRN (03:28)
[2018-05-22] MEDS ORDERED: METHADONE HCL 5 MG TABLET ONE (04:27)
[2018-05-22] MEDS ORDERED: METHADONE HCL 40 MG DISPERSABLE TABLET ONE (04:28)
[2018-05-22] MEDS: METHADONE 120 MG, METHADONE 5 MG PO SCH (05:08)
[2018-05-22] MEDS ORDERED: diazePAM 5 MG TABLET PO SCH (08:00)
[2018-05-22 09:31] VITALS: BP 140/96; PULSE 66; TEMP 97.6
[2018-05-22] MEDS: PATIENT'S OWN MEDICATION (NON-FORMULARY) (Sulfamethoxazole/Trimethoprim [Sulfamethoxazole- PO SCH (09:40)
[2018-05-22] MEDS: RANITIDINE HCL 150 MG TABLET (FP) PO SCH (09:40)
[2018-05-22] MEDS: VITAMINS A AND D TOPICAL OINTMENT 60 GM TUBE TP SCH (09:40)
[2018-05-22] MEDS: PRENATAL VITAMINS W/ FOLIC ACID TABLET (FP) PO SCH (09:40)
[2018-05-22] MEDS: TOLNAFTATE 1% CREAM 15 GM TUBE TP SCH (09:40)
[2018-05-22] MEDS: NICOTINE 21 MG/24 HOURS TOPICAL PATCH TD SCH (09:45)
--- NOTE | 2018-05-22 16:30 | PN ---
BHS Progress Note (SOAP) Subjective: Patient reports anxiety; patient denies another withdrawal symptoms at this time. Objective: PATIENT A & O X 3, OBSERVED AMBULATING ON UNIT. NO ACUTE DISTRESS. 05/22/18 16:29 Vital Signs Temperature 97.6 F 05/22/18 09:30 Pulse Rate 66 05/22/18 09:30 Respiratory Rate 20 05/22/18 09:30 Blood Pressure 140/96 05/22/18 09:30 O2 Sat by Pulse Oximetry (%) Laboratory Tests 05/19/18 05/20/18 05/20/18 16:45 06:00 06:00 WBC 8.7 RBC 4.38 Hgb 13.5 Hct 39.2 MCV 89.5 MCH 30.8 MCHC 34.4 RDW 13.7 Plt Count 187 D MPV 9.3 D Sodium 136 Potassium 4.3 Chloride 103 Carbon Dioxide 26 Anion Gap 7 L BUN 8 Creatinine 1.1 Creat Clearance w eGFR > 60 Random Glucose 82 D Calcium 8.8 Total Bilirubin 0.4 AST 46 H D ALT 64 D Alkaline Phosphatase 85 Total Protein 7.9 Albumin 4.3 Urine Color Meli Urine Appearance Clear Urine pH 6.0 Ur Specific [place] [employer] 1.010 Urine Protein Negative Urine Glucose (UA) Negative Urine Ketones Negative Urine Blood Negative Urine Nitrite Positive Urine Bilirubin Negative Urine Urobilinogen 4.0 e.u/dl Ur Leukocyte Esterase Trace Urine WBC (Auto) 2 Urine RBC (Auto) None Urine Mucus Rare RPR Titer 05/20/18 06:00 WBC RBC Hgb Hct MCV MCH MCHC RDW Plt Count MPV Sodium Potassium Chloride Carbon Dioxide Anion Gap BUN Creatinine Creat Clearance w eGFR Random Glucose Calcium Total Bilirubin AST ALT Alkaline Phosphatase Total Protein Albumin Urine Color Urine Appearance Urine pH Ur Specific [employer] Urine Protein Urine Glucose (UA) Urine Ketones Urine Blood Urine Nitrite Urine Bilirubin Urine Urobilinogen Ur Leukocyte Esterase Urine WBC (Auto) Urine RBC (Auto) Urine Mucus RPR Titer Nonreactive LABS NOTED. Assessment: 05/22/18 16:29 COMPLETION OF DETOX REGIMEN. Plan: PATIENT SCHEDULED FOR DISCHARGE FROM DETOX UNIT TODAY.
--- NOTE | 2018-05-22 16:36 | DS ---
[facility] Detox Discharge Summary Admission Date: 05/19/18 Discharge Date: 05/22/18 - History Present History: Opioid Dependence, Sedative Dependence, MMTP Additional Comments: PATIENT GOING TO [facility] ([facility] FOR AFTERCARE. PATIENT REPORTS THAT HE FEELS WELL OVERALL AT TIME OF DISCHARGE FROM DETOX UNIT. PATIENT ADVISED TO BRING REMAINDER OF SUPPLY OF BACTRIM THAT HE IS CURRENTLY TAKING FOR TREATMENT OF UTI WITH HIM FOR ADMISSION AT [facility]. PATIENT WAS DISCHARGED FROM DETOX UNIT IN STABLE MEDICAL CONDITION. Pertinent Past History: History of Irritable Bowel Syndrome, History of G.E.R.D., History of Hiatal Hernia, M.M.T.P., Nicotine Dependence, History of Hep C, UTI, Anxiety, Depression. - Physical Exam Results Vital Signs: Vital Signs Temperature 97.6 F 05/22/18 09:30 Pulse Rate 66 05/22/18 09:30 Respiratory Rate 20 05/22/18 09:30 Blood Pressure 140/96 05/22/18 09:30 O2 Sat by Pulse Oximetry (%) Pertinent Admission Physical Exam Findings: WITHDRAWAL SYMPTOMS. Laboratory Tests 05/19/18 05/20/18 05/20/18 16:45 06:00 06:00 WBC 8.7 RBC 4.38 Hgb 13.5 Hct 39.2 MCV 89.5 MCH 30.8 MCHC 34.4 RDW 13.7 Plt Count 187 D MPV 9.3 D Sodium 136 Potassium 4.3 Chloride 103 Carbon Dioxide 26 Anion Gap 7 L BUN 8 Creatinine 1.1 Creat Clearance w eGFR > 60 Random Glucose 82 D Calcium 8.8 Total Bilirubin 0.4 AST 46 H D ALT 64 D Alkaline Phosphatase 85 Total Protein 7.9 Albumin 4.3 Urine Color Meli Urine Appearance Clear Urine pH 6.0 Ur Specific [place] 1.010 Urine Protein Negative Urine Glucose (UA) Negative Urine Ketones Negative Urine Blood Negative Urine Nitrite Positive Urine Bilirubin Negative Urine Urobilinogen 4.0 e.u/dl Ur Leukocyte Esterase Trace Urine WBC (Auto) 2 Urine RBC (Auto) None Urine Mucus Rare RPR Titer 05/20/18 06:00 WBC RBC Hgb Hct MCV MCH MCHC RDW Plt Count MPV Sodium Potassium Chloride Carbon Dioxide Anion Gap BUN Creatinine Creat Clearance w eGFR Random Glucose Calcium Total Bilirubin AST ALT Alkaline Phosphatase Total Protein Albumin Urine Color Urine Appearance Urine pH Ur Specific [place] Urine Protein Urine Glucose (UA) Urine Ketones Urine Blood Urine Nitrite Urine Bilirubin Urine Urobilinogen Ur Leukocyte Esterase Urine WBC (Auto) Urine RBC (Auto) Urine Mucus RPR Titer Nonreactive LABS NOTED. - Treatment Hospital Course: Detox Protocol Followed, Detoxed Safely, Responded well, Discharged Condition Good, Rehab Referral Accepted Patient has Accepted a Rehab Referral to: [facility] ([facility]). - Medication Discharge Medications: Ambulatory Orders Omeprazole 20 mg PO BID 05/19/18 Sulfamethoxazole/Trimethoprim [Sulfamethoxazole-Tmp Ss Tablet] 1 each PO DAILY 05/19/18 - Diagnosis (1) Nicotine dependence Status: Acute Qualifiers: Nicotine product type: cigarettes Substance use status: in withdrawal Qualified Code(s): F17.213 - Nicotine dependence, cigarettes, with withdrawal (2) Sedative, hypnotic or anxiolytic dependence with withdrawal, unspecified Status: Acute (3) UTI (urinary tract infection) Status: Acute Qualifiers: Urinary tract infection type: site unspecified Hematuria presence: without hematuria Qualified Code(s): N39.0 - Urinary tract infection, site not specified (4) IBS (irritable bowel syndrome) Status: Chronic Qualifiers: Irritable bowel syndrome type: with diarrhea Qualified Code(s): K58.0 - Irritable bowel syndrome with diarrhea (5) Methadone maintenance therapy patient Status: Chronic (6) Hepatitis C Status: Chronic Qualifiers: Viral hepatitis chronicity: chronic Hepatic coma status: without hepatic coma Qualified Code(s): B18.2 - Chronic viral hepatitis C (7) Anxiety with depression Status: Suspected (8) Substance induced mood disorder Status: Acute - AMA Did Patient Leave Against Medical Advice: No
[2018-05-23] MEDS ORDERED: diazePAM 5 MG TABLET PO SCH (10:00)
== END 2018-05-22 12:20 | disposition home or self-care (01) | DRG 773 ==
LOC: YASAS 11:13 → Y3N 14:20
PROVIDERS: ADMIT Surgery; ATTEND Surgery
PROC: HZ2ZZZZ Detoxification Services for Substance Abuse Treatment (ICD-10-PCS; principal; 2018-05-19)
DX: F11.20 Opioid dependence, uncomplicated (principal); F13.230 Sedative, hypnotic or anxiolytic dependence with withdrawal, uncomplicated; F12.20 Cannabis dependence, uncomplicated; F17.213 Nicotine dependence, cigarettes, with withdrawal; F19.24 Other psychoactive substance dependence with psychoactive substance-induced mood disorder; F41.8 Other specified anxiety disorders; N39.0 Urinary tract infection, site not specified; K58.0 Irritable bowel syndrome with diarrhea; B18.2 Chronic viral hepatitis C
CPT/HCPCS: 36415; 80053; 81003; 81015; 85027; 86593; 93005; 93010

== ENCOUNTER 2018-12-23 10:03 | Inpatient (IN) | payer OTHER ==
[2018-12-23 12:46] VITALS: BMI 26.9
--- NOTE | 2018-12-23 13:57 | HP ---
CIWA Score Nausea/Vomitin Muscle Tremors: 4-Moderate,w/Arms Extend Anxiety: 4-Mod. Anxious/Guarded Agitation: 1-Slight > Activity Paroxysmal Sweats: 2 Orientation: 0-Oriented Tacttile Disturbances: 3-Moderate Itch/Numb/Burn Auditory Disturbances: 0-None Visual Disturbances: 0-None Headache: 2-Mild CIWA-Ar Total Score: 18 - Admission Criteria [facility]ASAS Guidelines: Admission for Medically Managed Detox: Requires at least one of the followin. CIWA greater than 12 2. Seizures within the past 24 hours 3. Delirium tremens within the past 24 hours 4. Hallucinations within the past 24 hours 5. Acute intervention needed for co occurring medical disorder 6. Acute intervention needed for co occurring psychiatric disorder 7. Severe withdrawal that cannot be handled at a lower level of care (continued vomiting, continued diarrhea, abnormal vital signs) requiring intravenous medication and/or fluids 8. Admission ROS [facility] Chief Complaint: PATIENT PRESENTS WITH BZO/ETOH WITHDRAWAL SX. Allergies/Adverse Reactions: Allergies Allergy/AdvReac Type Severity Reaction Status Date / Time No Known Allergies Allergy Verified 12/23/18 13:24 History of Present Illness: PATIENT PRESENTS WITH ETOH/BZO WITHDRAWAL SX. PATIENT IS KNOWN TO [facility] HE WAS ADMITTED TO DETOX THREE TIMES IN PAST 2 YEARS. LAST DETOX 05/2018. PATIENT STARTED DRINKING ETOH 1-2 PINTS OF LIQUOR DAILY 2-3 MONTHS AGO TO ENHANCE EFFECTS OF KLONIPIN. PATIENT REPORTS LAST DRINK THIS MORNING. KLONIPIN HAS BEEN PRESCRIBED SINCE AGE 13, ON AND OFF. ISTOP VERIFIES LAST PRESCRIPTION KLONIPIN 0.5MG BID ON 12/01/18 #60 BY HEALTH INFORMATION ADMINISTRATOR BELKIS BERGER. PATIENT PRESENTS LETTER FROM PROVIDER STATING SHE IS IN AGREEMENT WITH DETOX FROM [facility]. LAST DOSE OF KLONIPIN THIS MORNING. + H/O SEIZURES, TREMORS AND BLACKOUTS. PATIENT DENIES BINGE DRINKING AND EYE OPENERS. PATIENT IS ALSO ON MTD PROGRAM AT [facility]. LAST DOSE THIS AM. DOSE 125MG PO BID. PATIENT PMH INCLUDES HEP C ( TREATED), IBS , ASTHMA, ANXIETY AND TOBACCO USE. DENIES SI/HI AND SUICIDE ATTEMPTS. + MARIJUANA USE. Exam Limitations: No Limitations - Ebola screening Have you traveled outside of the country in the last 21 days: No Have you had contact with anyone from an Ebola affected area: No Have you been sick,other than usual withdrawal symptoms: No Do you have a fever: No - Review of Systems Constitutional: Chills, Night Sweats, Unexplained wgt Loss EENT: reports: Nose Congestion Respiratory: reports: Cough Cardiac: reports: No Symptoms Reported GI: reports: Diarrhea, Nausea, Poor Fluid Intake : reports: No Symptoms Reported Musculoskeletal: reports: No Symptoms Reported Integumentary: reports: Sweating Neuro: reports: Headache, Numbness, Seizure (HX), Tingling, Tremors Endocrine: reports: Unexplained Weight Loss Hematology: reports: No Symptoms Reported Psychiatric: reports: Orientated x3, Anxious Patient History - Patient Medical History Hx Anemia: No Hx Asthma: Yes Hx Chronic Obstructive Pulmonary Disease (COPD): No Hx Cancer: No Hx Cardiac Disorders: No Hx Congestive Heart Failure: No Hx Hypertension: No Hx Hypercholesterolemia: No Hx Pacemaker: No HX Cerebrovascular Accident: No Hx Seizures: Yes (pt states he had a drug related seizure 2 months ago) Hx Dementia: No Hx Diabetes: No Hx Gastrointestinal Disorders: Yes (acid reflux) Hx Liver Disease: Yes (HEP C TREATED) Hx Genitourinary Disorders: No Hx Sexually Transmitted Disorders: No Hx Renal Disease (ESRD): No Hx Thyroid Disease: No Hx Human Immunodeficiency Virus (HIV): No (tested in July 2017) Hx Hepatitis C: Yes (TREATED ) Hx Depression: No Hx Suicide Attempt: No Hx Bipolar Disorder: No Hx Schizophrenia: No Other Medical History: ANXIETY - Patient Surgical History Past Surgical History: Yes Hx Neurologic Surgery: No Hx Cataract Extraction: No Hx Cardiac Surgery: No Hx Lung Surgery: No Hx Breast Surgery: No Hx Breast Biopsy: No Hx Abdominal Surgery: No Hx Appendectomy: No Hx Cholecystectomy: No Hx Genitourinary Surgery: No Hx Orthopedic Surgery: No Other Surgical History: deviated septum repair, 2001 Anesthesia Reaction: No - PPD History Previous Implant?: Yes Documented Results: Negative w/proof Implanted On Prior R Admission?: Yes Date: 01/23/18 Results: 0 mm PPD to be Administered?: No - Smoking Cessation Smoking history: Current every day smoker Have you smoked in the past 12 months: Yes Aproximately how many cigarettes per day: 20 Cigars Per Day: 0 Hx Chewing Tobacco Use: No Initiated information on smoking cessation: Yes 'Breaking Loose' booklet given: 12/23/18 - Substance & Tx. History Hx Alcohol Use: Yes Hx Substance Use: Yes Substance Use Type: Alcohol, Marijuana, Prescribed, Tranquilizers Hx Substance Use Treatment: Yes - Substances Abused Alcohol Route: Oral Amount used: 1 pint vodka Age of first use: 33 Date of Last Use: 12/23/18 Benzodiazepine (Klonopin) Route: Oral Frequency: Daily Amount used: 8-10mg Age of first use: 11 Date of Last Use: 12/22/18 Marijuana/Hashish Route: Smoking Frequency: Daily Amount used: 1 gram Age of first use: 11 Date of Last Use: 12/23/18 xanax Route: Oral Frequency: Daily Amount used: 8-10 mg Age of first use: 13 Date of Last Use: 12/20/18 Family Disease History - Family Disease History Family Disease History: CA: Father (alive, proatate cancer ), Mother (, breast cancer ), Other: Father, Mother Admission Physical Exam S - Vital Signs Vital Signs: Vital Signs - 24 hr 12/23/18 10:32 Temperature 96.8 F L Pulse Rate 58 L Respiratory 17 Rate Blood Pressure 121/73 - Physical General Appearance: Yes: Nourished, Appropriately Dressed, Alcohol on Breath, Tremorous, Sweating, Anxious HEENTM: Yes: EOMI, Hearing grossly Normal, Normocephalic, Normal Voice, STUART, Pharynx Normal, Nasal Congestion Respiratory: Yes: Chest Non-Tender, No Respiratory Distress, No Accessory Muscle Use, Wheezing Neck: Yes: No masses,lesions,Nodules, Supple, Trachea in good position Breast: Yes: Breast Exam Deferred Cardiology: Yes: Regular Rhythm, Regular Rate, S1, S2 Abdominal: Yes: Normal Bowel Sounds, Non Tender, Soft Genitourinary: Yes: Within Normal Limits Back: Yes: Within Normal Limits, Normal Inspection Musculoskeletal: Yes: full range of Motion, Gait Steady Extremities: Yes: Normal Inspection, Normal Range of Motion, Non-Tender, Tremors Neurological: Yes: examination proctor II-XII NML intact, Fully Oriented, Alert, Motor Strength 5/5, Normal Response, Other (ANXIETY) Integumentary: Yes: Normal Color, Warm, Moist Lymphatic: Yes: Within Normal Limits - Diagnostic (1) Anxiety Current Visit: Yes Status: Chronic (2) History of seizures Current Visit: Yes Status: Chronic (3) Alcohol dependence with withdrawal, uncomplicated Current Visit: Yes Status: Acute (4) Marihuana dependence Current Visit: Yes Status: Chronic (5) Nicotine dependence Current Visit: Yes Status: Chronic Qualifiers: Nicotine product type: cigarettes Substance use status: in withdrawal Qualified Code(s): F17.213 - Nicotine dependence, cigarettes, with withdrawal Comment: . (6) Opioid dependence on agonist therapy Current Visit: Yes Status: Chronic Comment: 125MG BID. (7) Sedative, hypnotic or anxiolytic dependence with withdrawal, unspecified Current Visit: Yes Status: Acute Comment: . (8) Asthma Current Visit: Yes Status: Chronic Qualifiers: Asthma severity: mild Asthma persistence: unspecified Asthma complication type: unspecified (9) IBS (irritable bowel syndrome) Current Visit: Yes Status: Chronic Qualifiers: Irritable bowel syndrome type: with diarrhea Qualified Code(s): K58.0 - Irritable bowel syndrome with diarrhea Cleared for Admission [facility] - Detox or Rehab [facility] Level of Care: Medically Managed Detox Regimen/Protocol: Valium S Breath Alcohol Content Breath Alcohol Content: 0.142 Urine Drug Screen - Results Drug Screen Negative: No Urine Drug Screen Results: THC-Marijuana, MET-Methamphetamine, BZO- Benzodiazepines, MTD-Methadone Inpatient Rehab Admission - Rehab Decision to Admit Inpatient rehab admission?: No
[2018-12-23] MEDS ORDERED: MAGNESIUM CITRATE 300 ML BOTTLE PO PRN (14:11)
[2018-12-23] MEDS ORDERED: MENTHOL/PHENOL 1 EACH UD MM PRN (14:11)
[2018-12-23] MEDS ORDERED: LOPERAMIDE HCL 2 MG CAPSULE PO PRN (14:11)
[2018-12-23] MEDS ORDERED: P-EPHED 60MG/TRIPROLIDI 2.5MG TABLET PO PRN (14:11)
[2018-12-23] MEDS ORDERED: guaiFENesin/D-METHORPHAN HB 10 ML UNIT-DOSE CUPS PO PRN (14:11)
[2018-12-23] MEDS ORDERED: MAGNESIUM HYDROX 2400MG/30ML ORAL SUSPENSION 30 ML CUP PO PRN (14:11)
[2018-12-23] MEDS ORDERED: ALBUTEROL SO4 8 GM HFA INHALER IH PRN (14:13)
[2018-12-23] MEDS ORDERED: diazePAM 5 MG TABLET PO ONE (15:30)
[2018-12-23] MEDS ORDERED: METHADONE HCL 5 MG TABLET ONE (16:47)
[2018-12-23] MEDS ORDERED: METHADONE HCL 40 MG DISPERSABLE TABLET ONE (16:48)
[2018-12-23] MEDS: METHADONE 120 MG, METHADONE 5 MG PO SCH (17:01)
[2018-12-23] MEDS ORDERED: METHADONE PO SCH (18:00)
[2018-12-23] MEDS ORDERED: METHADONE HCL 10 MG TABLET PO SCH (18:00)
[2018-12-23] MEDS ORDERED: MELATONIN 5 MG TABLETS PO PRN (22:00)
[2018-12-23] MEDS: THIAMINE HCL 100 MG TABLET (FP) PO SCH (22:07)
[2018-12-23] MEDS: diazePAM 5 MG TABLET PO SCH (22:07)
[2018-12-23] MEDS: MAG HYDROX/AL HYDROX/SIMETH 30 ML UNIT-DOSE CUP PO PRN (22:07)
[2018-12-23 23:39] LABS: URINE APPEARANCE CLEAR; URINE BILIRUBIN NEGATIVE (<2.0 mg/dL); URINE COLOR LTYELLOW; URINE GLUCOSE (UA) NEGATIVE (NEGATIVE); URINE KETONE NEGATIVE (NEGATIVE); URINE LEUK ESTERASE 1+ (NEGATIVE); URINE NITRITE NEGATIVE (NEGATIVE); URINE PROTEIN NEGATIVE (NEGATIVE); URINE UROBILINOGEN NEGATIVE mg/dL (0.2-1.0)
[2018-12-23 23:50] LABS: URINE MUCUS RARE
[2018-12-24] MEDS: diazePAM 5 MG TABLET PO PRN ×3 (02:39→18:09)
[2018-12-24] MEDS ORDERED: METHADONE HCL 5 MG TABLET ONE ×2 (05:11→17:27)
[2018-12-24] MEDS ORDERED: METHADONE HCL 40 MG DISPERSABLE TABLET ONE ×2 (05:11→17:27)
[2018-12-24] MEDS: METHADONE 120 MG, METHADONE 5 MG PO SCH ×2 (05:49→18:05)
[2018-12-24] MEDS: diazePAM 5 MG TABLET PO SCH ×3 (05:49→22:18)
--- NOTE | 2018-12-24 09:18 | PN ---
[facility] CIWA - CIWA Score Nausea/Vomitin-No Nausea/No Vomiting Muscle Tremors: 4-Moderate,w/Arms Extend Anxiety: 3 Agitation: 3 Paroxysmal Sweats: 3 Orientation: 0-Oriented Tacttile Disturbances: 0-None Auditory Disturbances: 0-None Visual Disturbances: 0-None Headache: 0-None Present CIWA-Ar Total Score: 13 S Progress Note (SOAP) Subjective: interrupted sleep agitation sweats I need my protonix, gabapentin, ointment for my skin my sneakers Objective: 12/24/18 09:16 Vital Signs Temperature 97.5 F L 12/24/18 07:04 Pulse Rate 60 12/24/18 07:04 Respiratory Rate 18 12/24/18 07:04 Blood Pressure 123/81 12/24/18 07:04 O2 Sat by Pulse Oximetry (%) Laboratory Tests 12/23/18 22:45 Urine Color Ltyellow Urine Appearance Clear Urine pH 6.0 Ur Specific [place] 1.012 Urine Protein Negative Urine Glucose (UA) Negative Urine Ketones Negative Urine Blood Negative Urine Nitrite Negative Urine Bilirubin Negative Urine Urobilinogen Negative Ur Leukocyte Esterase 1+ H Urine WBC (Auto) 5 Urine RBC (Auto) 1 Urine Mucus Rare rest of labs pending aaox3 ambulating no acute distress Assessment: 12/24/18 09:17 withdrawal sx Plan: continue detox increase fluids pt medication request ordered sneakers ordered
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
[2018-12-24] MEDS ORDERED: MINERAL OIL/PETROLAT/WATER TOPICAL CREAM 113 GM JAR TP SCH (10:00)
[2018-12-24] MEDS ORDERED: MINERAL OIL/PET HY-PHL TOPICAL OINTMENT 454 GM JAR TP SCH (10:00)
[2018-12-24] MEDS: NICOTINE 21 MG/24 HOURS TOPICAL PATCH TD SCH (10:39)
[2018-12-24] MEDS: PRENATAL VITAMINS W/ FOLIC ACID TABLET (FP) PO SCH (10:39)
[2018-12-24] MEDS: GABAPENTIN 400 MG CAPSULE (FP) PO SCH ×4 (10:42→22:18)
[2018-12-24] MEDS: PANTOPRAZOLE 20 MG TABLET (FP) PO SCH ×2 (10:42→22:18)
[2018-12-24 10:54] LABS: ALBUMIN 3.7 g/dl (3.4-5.0); ALK PHOS 70 U/L (45-117); ANION GAP 4 MMOL/L (8-16); BILIRUBIN,TOTAL 0.4 mg/dL (0.2-1); BLOOD UREA NITROGEN 9 mg/dL (7-18); CALCIUM 8.3 mg/dL (8.5-10.1); CHLORIDE 100 mmol/L (98-107); CO2 29 mmol/L (21-32); GLUCOSE,RANDOM 78 mg/dL (74-106); POTASSIUM 3.9 mmol/L (3.5-5.1); SGOT/AST 21 U/L (15-37); SGPT/ALT 14 U/L (13-61); SODIUM 133 mmol/L (136-145)
[2018-12-24 10:59] LABS: HEMATOCRIT 36.1 % (35.4-49); HEMOGLOBIN 12.1 GM/dL (11.7-16.9); MCH 30.8 pg (25.7-33.7); MCHC 33.6 g/dl (32.0-35.9); MEAN CELL VOLUME 91.4 fl (80-96); MEAN PLT VOLUME 8.7 fl (7.5-11.1); PLATELET COUNT 244 K/MM3 (134-434); RBC 3.95 M/mm3 (4.00-5.60); RDW 13.7 % (11.9-15.9); WHITE BLOOD COUNT 8.5 K/mm3 (4.0-10.0)
[2018-12-24] MEDS: VITAMINS A AND D TOPICAL OINTMENT 60 GM TUBE TP SCH ×3 (14:52→23:39)
--- NOTE | 2018-12-24 15:46 | EKG ---
Test Reason : Blood Pressure : / mmHG Vent. Rate : 048 BPM Atrial Rate : 048 BPM P-R Int : 164 ms QRS Dur : 104 ms QT Int : 490 ms P-R-T Axes : 029 003 009 degrees QTc Int : 437 ms SINUS BRADYCARDIA OTHERWISE NORMAL ECG WHEN COMPARED WITH ECG OF 19-MAY-2018 15:10, NO SIGNIFICANT CHANGE WAS FOUND Confirmed by SHIRA MALDONADO MD ([id number]) on 12/24/2018 3:46:12 PM Referred By: DR MARTINO Confirmed By:SHIRA MALDONADO MD
[2018-12-24] MEDS: THIAMINE HCL 100 MG TABLET (FP) PO SCH (22:17)
[2018-12-24] MEDS: hydrOXYzine PAMOATE 50 MG CAPSULE (FP) PO PRN (22:18)
[2018-12-24] MEDS: MAG HYDROX/AL HYDROX/SIMETH 30 ML UNIT-DOSE CUP PO PRN (23:34)
[2018-12-25] MEDS ORDERED: METHADONE HCL 5 MG TABLET ONE ×2 (04:07→16:46)
[2018-12-25] MEDS ORDERED: METHADONE HCL 40 MG DISPERSABLE TABLET ONE ×2 (04:08→16:47)
[2018-12-25] MEDS: METHADONE 120 MG, METHADONE 5 MG PO SCH ×2 (05:37→18:27)
[2018-12-25] MEDS: diazePAM 5 MG TABLET PO PRN ×3 (06:26→18:27)
[2018-12-25] MEDS: VITAMINS A AND D TOPICAL OINTMENT 60 GM TUBE TP SCH ×4 (06:26→23:50)
--- NOTE | 2018-12-25 09:54 | PN ---
[facility] Progress Note Note: small abrasion/ open wound noted to right thumb; no s/s infection will order bacitracin oint prophylactically to close wound.
[2018-12-25] MEDS: GABAPENTIN 400 MG CAPSULE (FP) PO SCH ×4 (10:18→22:20)
[2018-12-25] MEDS: diazePAM 5 MG TABLET PO SCH ×2 (10:18→22:20)
[2018-12-25] MEDS: BACITRACIN 0.9 GM PACKET TP SCH (10:18)
[2018-12-25] MEDS: NICOTINE 21 MG/24 HOURS TOPICAL PATCH TD SCH (10:18)
[2018-12-25] MEDS: PANTOPRAZOLE 20 MG TABLET (FP) PO SCH ×2 (10:19→22:21)
[2018-12-25] MEDS: PRENATAL VITAMINS W/ FOLIC ACID TABLET (FP) PO SCH (10:19)
--- NOTE | 2018-12-25 11:05 | PN ---
S CIWA - CIWA Score Nausea/Vomitin-No Nausea/No Vomiting Muscle Tremors: 4-Moderate,w/Arms Extend Anxiety: 3 Agitation: 4-Moderately Restless Paroxysmal Sweats: 3 Orientation: 0-Oriented Tacttile Disturbances: 0-None Auditory Disturbances: 0-None Visual Disturbances: 0-None Headache: 0-None Present CIWA-Ar Total Score: 14 [facility] Progress Note (SOAP) Subjective: sweats shakes interrupted sleep body aches i need to see dietary I have missing teeth and having a hard time chewing. Objective: 12/25/18 11:03 Vital Signs Temperature 100.8 F H 12/25/18 09:22 Pulse Rate 80 12/25/18 09:22 Respiratory Rate 18 12/25/18 09:22 Blood Pressure 148/84 12/25/18 09:22 O2 Sat by Pulse Oximetry (%) Laboratory Tests 12/23/18 12/24/18 12/24/18 22:45 06:00 06:00 WBC 8.5 RBC 3.95 L Hgb 12.1 Hct 36.1 MCV 91.4 MCH 30.8 MCHC 33.6 RDW 13.7 Plt Count 244 D MPV 8.7 Sodium 133 L Potassium 3.9 Chloride 100 Carbon Dioxide 29 Anion Gap 4 L BUN 9 Creatinine 1.0 Creat Clearance w eGFR > 60 Random Glucose 78 Calcium 8.3 L Total Bilirubin 0.4 AST 21 ALT 14 Alkaline Phosphatase 70 Total Protein 7.0 Albumin 3.7 Urine Color Ltyellow Urine Appearance Clear Urine pH 6.0 Ur Specific [place] 1.012 Urine Protein Negative Urine Glucose (UA) Negative Urine Ketones Negative Urine Blood Negative Urine Nitrite Negative Urine Bilirubin Negative Urine Urobilinogen Negative Ur Leukocyte Esterase 1+ H Urine WBC (Auto) 5 Urine RBC (Auto) 1 Urine Mucus Rare RPR Titer 12/24/18 06:00 WBC RBC Hgb Hct MCV MCH MCHC RDW Plt Count MPV Sodium Potassium Chloride Carbon Dioxide Anion Gap BUN Creatinine Creat Clearance w eGFR Random Glucose Calcium Total Bilirubin AST ALT Alkaline Phosphatase Total Protein Albumin Urine Color Urine Appearance Urine pH Ur Specific [place] Urine Protein Urine Glucose (UA) Urine Ketones Urine Blood Urine Nitrite Urine Bilirubin Urine Urobilinogen Ur Leukocyte Esterase Urine WBC (Auto) Urine RBC (Auto) Urine Mucus RPR Titer Nonreactive aaox3 ambulating no acute distress Assessment: 12/25/18 11:03 withdrawal sx Plan: continue detox increase fluids melatonin prn dietary consultation ordered
[2018-12-25] MEDS: IBUPROFEN 400 MG TABLET (FP) PO PRN ×2 (14:16→22:20)
--- NOTE | 2018-12-25 16:01 | PN ---
[facility] Progress Note Note: pt will be d/c on friday after receiving his methadone maintenance. program is closed on friday d/t holiday. he will return to his program on friday for reinstatement.
[2018-12-25] MEDS: hydrOXYzine PAMOATE 50 MG CAPSULE (FP) PO PRN (22:20)
[2018-12-25] MEDS: THIAMINE HCL 100 MG TABLET (FP) PO SCH (22:21)
[2018-12-26] MEDS: diazePAM 5 MG TABLET PO PRN ×2 (04:04→12:38)
[2018-12-26] MEDS ORDERED: METHADONE HCL 5 MG TABLET ONE ×2 (04:29→17:01)
[2018-12-26] MEDS ORDERED: METHADONE HCL 40 MG DISPERSABLE TABLET ONE ×2 (04:29→17:02)
[2018-12-26] MEDS: METHADONE 120 MG, METHADONE 5 MG PO SCH ×2 (05:52→17:37)
[2018-12-26] MEDS: VITAMINS A AND D TOPICAL OINTMENT 60 GM TUBE TP SCH ×3 (05:52→17:39)
[2018-12-26] MEDS: BACITRACIN 0.9 GM PACKET TP SCH (10:07)
[2018-12-26] MEDS: GABAPENTIN 400 MG CAPSULE (FP) PO SCH ×4 (10:07→22:17)
[2018-12-26] MEDS: diazePAM 5 MG TABLET PO SCH ×2 (10:07→22:17)
[2018-12-26] MEDS: PRENATAL VITAMINS W/ FOLIC ACID TABLET (FP) PO SCH (10:07)
[2018-12-26] MEDS: NICOTINE 21 MG/24 HOURS TOPICAL PATCH TD SCH (10:08)
[2018-12-26] MEDS: PANTOPRAZOLE 20 MG TABLET (FP) PO SCH ×2 (10:08→22:17)
[2018-12-26] MEDS: NICOTINE POLACRILEX 2 MG GUM BUC PRN ×3 (10:09→22:49)
--- NOTE | 2018-12-26 10:18 | PN ---
[facility] Progress Note (SOAP) Subjective: pt states he has a h/o L leg cellulitis, pt states he has pain of this leg and feel like he has this infection is coming back O: Vital Signs - 24 hr 12/25/18 12/25/18 12/26/18 17:55 22:41 00:30 Temperature 98.4 F 98.2 F Pulse Rate 83 60 Respiratory 18 18 18 Rate Blood Pressure 146/92 120/80 12/26/18 12/26/18 08:47 09:45 Temperature 97.2 F L 99.3 F Pulse Rate 63 73 Respiratory 18 18 Rate Blood Pressure 146/97 145/94 Laboratory Tests 12/23/18 12/24/18 12/24/18 22:45 06:00 06:00 WBC 8.5 RBC 3.95 L Hgb 12.1 Hct 36.1 MCV 91.4 MCH 30.8 MCHC 33.6 RDW 13.7 Plt Count 244 D MPV 8.7 Sodium 133 L Potassium 3.9 Chloride 100 Carbon Dioxide 29 Anion Gap 4 L BUN 9 Creatinine 1.0 Creat Clearance w eGFR > 60 Random Glucose 78 Calcium 8.3 L Total Bilirubin 0.4 AST 21 ALT 14 Alkaline Phosphatase 70 Total Protein 7.0 Albumin 3.7 Urine Color Ltyellow Urine Appearance Clear Urine pH 6.0 Ur Specific [place] 1.012 Urine Protein Negative Urine Glucose (UA) Negative Urine Ketones Negative Urine Blood Negative Urine Nitrite Negative Urine Bilirubin Negative Urine Urobilinogen Negative Ur Leukocyte Esterase 1+ H Urine WBC (Auto) 5 Urine RBC (Auto) 1 Urine Mucus Rare RPR Titer 12/24/18 06:00 WBC RBC Hgb Hct MCV MCH MCHC RDW Plt Count MPV Sodium Potassium Chloride Carbon Dioxide Anion Gap BUN Creatinine Creat Clearance w eGFR Random Glucose Calcium Total Bilirubin AST ALT Alkaline Phosphatase Total Protein Albumin Urine Color Urine Appearance Urine pH Ur Specific [place] Urine Protein Urine Glucose (UA) Urine Ketones Urine Blood Urine Nitrite Urine Bilirubin Urine Urobilinogen Ur Leukocyte Esterase Urine WBC (Auto) Urine RBC (Auto) Urine Mucus RPR Titer Nonreactive PE- R leg warm to touch, with pitting edema, ruborous to 3" below knee a/p: continue benzo detox, continue MAT cellulitis- start keflex- monitor
[2018-12-26] MEDS: CEPHALEXIN MONOHYDRATE 500 MG CAPSULE (UD) PO SCH ×3 (12:33→23:29)
[2018-12-26] MEDS: IBUPROFEN 400 MG TABLET (FP) PO PRN ×2 (12:38→17:41)
[2018-12-26] MEDS: hydrOXYzine PAMOATE 50 MG CAPSULE (FP) PO PRN ×3 (13:45→22:17)
[2018-12-26] MEDS: ACETAMINOPHEN 325 MG TABLET (FP) PO PRN ×2 (13:48→22:50)
[2018-12-26] MEDS: THIAMINE HCL 100 MG TABLET (FP) PO SCH (22:18)
[2018-12-27] MEDS: VITAMINS A AND D TOPICAL OINTMENT 60 GM TUBE TP SCH ×5 (03:53→23:16)
[2018-12-27] MEDS ORDERED: METHADONE HCL 5 MG TABLET ONE ×2 (04:13→17:42)
[2018-12-27] MEDS ORDERED: METHADONE HCL 40 MG DISPERSABLE TABLET ONE ×2 (04:14→17:44)
[2018-12-27] MEDS: IBUPROFEN 400 MG TABLET (FP) PO PRN ×3 (04:28→19:24)
[2018-12-27] MEDS: METHADONE 120 MG, METHADONE 5 MG PO SCH ×2 (05:33→17:52)
[2018-12-27] MEDS: CEPHALEXIN MONOHYDRATE 500 MG CAPSULE (UD) PO SCH ×4 (05:33→23:00)
[2018-12-27] MEDS: NICOTINE POLACRILEX 2 MG GUM BUC PRN ×3 (05:35→14:56)
[2018-12-27] MEDS: ACETAMINOPHEN 325 MG TABLET (FP) PO PRN ×3 (08:59→20:26)
[2018-12-27] MEDS ORDERED: diazePAM 5 MG TABLET PO SCH (10:00)
[2018-12-27] MEDS: PANTOPRAZOLE 20 MG TABLET (FP) PO SCH ×2 (10:25→22:57)
[2018-12-27] MEDS: BACITRACIN 0.9 GM PACKET TP SCH (10:25)
[2018-12-27] MEDS: GABAPENTIN 400 MG CAPSULE (FP) PO SCH ×4 (10:25→22:58)
[2018-12-27] MEDS: NICOTINE 21 MG/24 HOURS TOPICAL PATCH TD SCH (10:25)
[2018-12-27] MEDS: PRENATAL VITAMINS W/ FOLIC ACID TABLET (FP) PO SCH (10:26)
[2018-12-27] MEDS: hydrOXYzine PAMOATE 50 MG CAPSULE (FP) PO PRN ×4 (10:29→23:21)
[2018-12-27] MEDS: CLINDAMYCIN HCL 150 MG CAPSULE (FP) PO SCH ×3 (13:17→23:00)
--- NOTE | 2018-12-27 13:19 | PN ---
[facility] Progress Note Note: PATIENT COMPLETED DETOX FOR BZO DEPENDENCE. CURRENTLY ON MTD PROGRAM AND FOR REINSTATEMENT UPON D/C. PATIENT DENIES ANXIETY, SHAKES AND SWEATING. CURRENTLY ON TREATMENT FOR CELLULITIS OF LOWER LEG. STATES REDNESS AND SWELLING HAS WORSENED SINCE ADMISSION. Vital Signs Temperature 99.1 F 12/27/18 09:36 Pulse Rate 71 12/27/18 09:36 Respiratory Rate 20 12/27/18 09:36 Blood Pressure 129/78 12/27/18 09:36 O2 Sat by Pulse Oximetry (%) Laboratory Tests 12/23/18 12/24/18 12/24/18 22:45 06:00 06:00 WBC 8.5 RBC 3.95 L Hgb 12.1 Hct 36.1 MCV 91.4 MCH 30.8 MCHC 33.6 RDW 13.7 Plt Count 244 D MPV 8.7 Sodium 133 L Potassium 3.9 Chloride 100 Carbon Dioxide 29 Anion Gap 4 L BUN 9 Creatinine 1.0 Creat Clearance w eGFR > 60 Random Glucose 78 Calcium 8.3 L Total Bilirubin 0.4 AST 21 ALT 14 Alkaline Phosphatase 70 Total Protein 7.0 Albumin 3.7 Urine Color Ltyellow Urine Appearance Clear Urine pH 6.0 Ur Specific [place] 1.012 Urine Protein Negative Urine Glucose (UA) Negative Urine Ketones Negative Urine Blood Negative Urine Nitrite Negative Urine Bilirubin Negative Urine Urobilinogen Negative Ur Leukocyte Esterase 1+ H Urine WBC (Auto) 5 Urine RBC (Auto) 1 Urine Mucus Rare RPR Titer 12/24/18 06:00 WBC RBC Hgb Hct MCV MCH MCHC RDW Plt Count MPV Sodium Potassium Chloride Carbon Dioxide Anion Gap BUN Creatinine Creat Clearance w eGFR Random Glucose Calcium Total Bilirubin AST ALT Alkaline Phosphatase Total Protein Albumin Urine Color Urine Appearance Urine pH Ur Specific [place] Urine Protein Urine Glucose (UA) Urine Ketones Urine Blood Urine Nitrite Urine Bilirubin Urine Urobilinogen Ur Leukocyte Esterase Urine WBC (Auto) Urine RBC (Auto) Urine Mucus RPR Titer Nonreactive PE: ALERT AND ORIENTED X 3 SKIN WARM AND DRY RLE WITH 2+ SWELLING AND REDNESS TO LOWER CALF AND ANKLE AREA, NO CALF TENDERNESS AMB INDEPENDENTLY A/P MMTP CELLULITIS WILL CONTINUE CURRENT TX ADD CLINDAMYCIN 300MG EVERY 6 HR TO KEFLEX LEG ELEVATION PRN CONTINUE TO MONITOR
[2018-12-27] MEDS: THIAMINE HCL 100 MG TABLET (FP) PO SCH (22:58)
[2018-12-28] MEDS ORDERED: METHADONE HCL 5 MG TABLET ONE (04:19)
[2018-12-28] MEDS ORDERED: METHADONE HCL 40 MG DISPERSABLE TABLET ONE (04:20)
[2018-12-28] MEDS: METHADONE 120 MG, METHADONE 5 MG PO SCH (05:42)
[2018-12-28] MEDS: CLINDAMYCIN HCL 150 MG CAPSULE (FP) PO SCH (05:43)
[2018-12-28] MEDS: CEPHALEXIN MONOHYDRATE 500 MG CAPSULE (UD) PO SCH (05:43)
[2018-12-28] MEDS: hydrOXYzine PAMOATE 50 MG CAPSULE (FP) PO PRN ×2 (05:43→10:46)
[2018-12-28] MEDS: NICOTINE POLACRILEX 2 MG GUM BUC PRN (05:45)
[2018-12-28] MEDS: IBUPROFEN 400 MG TABLET (FP) PO PRN (05:47)
[2018-12-28] MEDS: VITAMINS A AND D TOPICAL OINTMENT 60 GM TUBE TP SCH (06:24)
[2018-12-28 09:55] VITALS: BP 149/91; PULSE 99; TEMP 100.9
--- NOTE | 2018-12-28 10:23 | DS ---
[facility] Detox Discharge Summary Admission Date: 12/23/18 Discharge Date: 12/28/18 - History Present History: Alcohol Dependence, Sedative Dependence, MMTP - Physical Exam Results Vital Signs: Vital Signs Temperature 100.9 F H 12/28/18 09:54 Pulse Rate 99 H 12/28/18 09:54 Respiratory Rate 18 12/28/18 09:54 Blood Pressure 149/91 12/28/18 09:54 O2 Sat by Pulse Oximetry (%) - Treatment Hospital Course: Detox Protocol Followed, Detoxed Safely, Responded well, Discharged Condition Good, Rehab Referral Accepted - Medication Discharge Medications: Ambulatory Orders Omeprazole 20 mg PO BID 05/19/18 Albuterol Sulfate Inhaler - [Ventolin Hfa Inhaler -] 2 inh PO Q4H PRN 12/23/18 Gabapentin [Neurontin -] 400 mg PO QID 12/23/18 Methadone [Dolophine -] 125 mg PO BID 12/23/18 Cephalexin Monohydrate [Keflex -] 500 mg PO Q6HPO #30 capsule 12/28/18 - Diagnosis (1) Alcohol dependence with withdrawal, uncomplicated Current Visit: Yes Status: Chronic (2) Sedative, hypnotic or anxiolytic dependence with withdrawal, unspecified Current Visit: Yes Status: Chronic (3) Substance induced mood disorder Current Visit: Yes Status: Acute (4) Anxiety Current Visit: Yes Status: Chronic (5) Asthma Current Visit: Yes Status: Chronic Qualifiers: Asthma severity: mild Asthma persistence: unspecified Asthma complication type: unspecified (6) History of seizures Current Visit: Yes Status: Chronic (7) IBS (irritable bowel syndrome) Current Visit: Yes Status: Chronic Qualifiers: Irritable bowel syndrome type: with diarrhea Qualified Code(s): K58.0 - Irritable bowel syndrome with diarrhea (8) [place] dependence Current Visit: Yes Status: Chronic (9) Nicotine dependence Current Visit: Yes Status: Chronic Qualifiers: Nicotine product type: cigarettes Substance use status: in withdrawal Qualified Code(s): F17.213 - Nicotine dependence, cigarettes, with withdrawal (10) Alcohol dependence with withdrawal Current Visit: Yes Status: Chronic Qualifiers: Complication of substance-induced condition: uncomplicated Qualified Code(s ): F10.230 - Alcohol dependence with withdrawal, uncomplicated (11) Cellulitis of leg without foot, left Current Visit: Yes Status: Acute (12) Cellulitis of leg without foot, right Current Visit: Yes Status: Acute (13) Eczema Current Visit: No Status: Chronic Qualifiers: Eczema type: unspecified Qualified Code(s): L30.9 - Dermatitis, unspecified (14) Hepatitis C Current Visit: No Status: Chronic Qualifiers: Viral hepatitis chronicity: chronic Hepatic coma status: without hepatic coma Qualified Code(s): B18.2 - Chronic viral hepatitis C (15) Hernia, hiatal Current Visit: No Status: Chronic (16) Hypertension Current Visit: Yes Status: Chronic Qualifiers: Hypertension type: essential hypertension Qualified Code(s): I10 - Essential (primary) hypertension (17) Marijuana dependence Current Visit: Yes Status: Chronic (18) Methadone maintenance therapy patient Current Visit: Yes Status: Chronic (19) Anxiety with depression Current Visit: No Status: Suspected (20) Psychiatric disorder Current Visit: No Status: Suspected - AMA Did Patient Leave Against Medical Advice: [facility]
[2018-12-28] MEDS: PRENATAL VITAMINS W/ FOLIC ACID TABLET (FP) PO SCH (10:38)
[2018-12-28] MEDS: BACITRACIN 0.9 GM PACKET TP SCH (10:41)
[2018-12-28] MEDS: PANTOPRAZOLE 20 MG TABLET (FP) PO SCH (10:41)
[2018-12-28] MEDS: NICOTINE 21 MG/24 HOURS TOPICAL PATCH TD SCH (10:41)
[2018-12-28] MEDS: GABAPENTIN 400 MG CAPSULE (FP) PO SCH (10:41)
[2018-12-28] MEDS: ACETAMINOPHEN 325 MG TABLET (FP) PO PRN (10:45)
== END 2018-12-28 12:10 | disposition home or self-care (01) | DRG 773 ==
LOC: YASAS 10:03 → Y6N 15:25
PROVIDERS: ADMIT Surgery; ATTEND Surgery
PROC: HZ2ZZZZ Detoxification Services for Substance Abuse Treatment (ICD-10-PCS; principal; 2018-12-23)
DX: F10.230 Alcohol dependence with withdrawal, uncomplicated (principal); F11.20 Opioid dependence, uncomplicated; F13.230 Sedative, hypnotic or anxiolytic dependence with withdrawal, uncomplicated; F12.20 Cannabis dependence, uncomplicated; F17.213 Nicotine dependence, cigarettes, with withdrawal; F19.24 Other psychoactive substance dependence with psychoactive substance-induced mood disorder; F41.9 Anxiety disorder, unspecified; I10 Essential (primary) hypertension; J45.909 Unspecified asthma, uncomplicated; K58.0 Irritable bowel syndrome with diarrhea; L03.115 Cellulitis of right lower limb; L03.116 Cellulitis of left lower limb; L30.9 Dermatitis, unspecified; B18.2 Chronic viral hepatitis C; K44.9 Diaphragmatic hernia without obstruction or gangrene; K21.9 Gastro-esophageal reflux disease without esophagitis; Z86.69 Personal history of other diseases of the nervous system and sense organs; S60.311A Abrasion of right thumb, initial encounter; X58.XXXA Exposure to other specified factors, initial encounter; Y93.9 Activity, unspecified; Y92.9 Unspecified place or not applicable
CPT/HCPCS: 36415; 80053; 81003; 81015; 85027; 86593; 93005; 93010

== ENCOUNTER 2019-06-21 14:53 | Inpatient (IN) | payer OTHER | END 2019-06-24 13:09 | disposition other institution (70) | LOC: YASAS 14:53 → Y3N 20:48 ==